=== PATIENT | female | born 1990 | race Caucasian/White ===

== ENCOUNTER 2024-07-13 15:07 | Emergency (ER) | payer MEDICAID, SELFPAY ==
[2024-07-13 15:08] VITALS: BMI 50.8
[2024-07-13 15:43] VITALS: BP 139/85; PULSE 69; RESP 18; TEMP 36.5; O2SAT 97
--- NOTE | 2024-07-13 15:50 | PD.EDRME ---
Rapid Medical Screening Exam RME Arrival date/time: 07/13/24 15:07 Chief Complaint: Urogenital-Female Time Seen by Provider: 07/13/24 15:22 Vital signs: Vital Signs Temperature 97.7 F 07/13/24 15:43 Pulse Rate 69 07/13/24 15:43 Respiratory Rate 18 07/13/24 15:43 Blood Pressure 139/85 H 07/13/24 15:43 Pulse Oximetry (%) 97 07/13/24 15:43 Oxygen Delivery Method Room Air 07/13/24 15:43 RME Narrative: Intermittent vaginal bleeding since April. Patient reports heavy bleeding x 1 week after rough intercourse, changing pads every 30 minutes for the past 3 days.
--- NOTE | 2024-07-13 15:51 | XR_ITS ---
Examination: Pelvic ultrasound, transabdominal, complete Technique: Transabdominal ultrasound of the pelvis performed using grayscale imaging Date and time of exam: July 13, 2024 1715 hrs. Indications: Pelvic cramping beginning 3 weeks ago Findings: Uterus 12.9 x 5.0 x 7.5 cm Endometrial stripe 0.70 cm No uterine mass or intrauterine gestation Right ovary 5.0 x 4.2 x 5.1 cm arterial flow, 24 x 29 x 37 mm cyst Left ovary 4.0 x 2.7 x 3.6 cm arterial flow No fluid in the cul-de-sac Impression: No uterine mass or intrauterine gestation Right ovarian cyst 24 x 29 x 37 mm
[2024-07-13 16:25] LABS: Collection Type, Urine Clean Catch
[2024-07-13 16:31] LABS: Basophils # (Auto) 0.1 Thou/mm3 (0.0-0.2); Basophils % (Auto) 1 % (0-2.5); Eosinophils # (Auto) 0.2 Thou/mm3 (0.0-0.5); Eosinophils % (Auto) 3 % (0-10); Hematocrit 39.1 % (36.0-46.0); Immature Granulocytes % (Auto) 0 % (0-0); Immature Granulocytes Auto 0.02 Thou/mm3 (0.00-0.00); Lymphocytes # (Auto) 3.1 Thou/mm3 (1.0-4.8); Lymphocytes % (Auto) 37 % (10-50); Mean Corpuscular HGB Conc 33.2 g/dl (31.0-37.0); Mean Corpuscular Hemoglobin 27.8 pg (25.0-35.0); Mean Corpuscular Volume 84 fL (80-100); Monocytes # (Auto) 0.5 Thou/mm3 (0.0-0.8); Monocytes % (Auto) 6 % (0-12); Neutrophils # (Auto) 4.5 Thou/mm3 (1.8-7.7); Neutrophils % (Auto) 54 % (37-80); Nucleated Red Blood Cell % 0 /100 WBC (0); Platelet Count 303 Thou/mm3 (140-440); RDW Standard Deviation 41.9 fL (36.4-46.3); Red Blood Count 4.67 Miln/mm3 (4.00-5.20); White Blood Count 8.4 Thou/mm3 (3.6-11.0)
[2024-07-13 16:36] LABS: Bilirubin,Urine Negative (Negative); Blood,Urine 3+ (Negative); Clarity,Urine Clear (Clear/Hazy); Color,Urine Colorless (Lt Yel-Yel); Glucose, Urine Negative (Negative); HCG Qualitative,Urine Negative; Ketones,Urine Negative (Negative); Leukocyte Esterase,Urine Negative (Negative); Nitrite,Urine Negative (Negative); PH,Urine 5.5 (5.0-7.0); Protein,Urine Negative (Neg - Trace); RBC,Urine 21 /hpf (0-3); Specific Gravity,Urine 1.006 (1.001-1.035); Squamous Epithelial Cell,Urine < 1 /hpf (0-5); Urobilinogen,Urine Negative mg/dL (0.0-1.0); WBC,Urine 1 /hpf (0-5)
[2024-07-13 16:47] LABS: Alanine Aminotransferase 50 U/L (10-49); Albumin, Serum 4.4 gm/dL (3.5-5.0); Albumin/Globulin Ratio 1.5 (1.2-2.2); Alkaline Phosphatase 55 U/L (46-116); Anion Gap 8 (7-16); Aspartate Amino Transferase 42 U/L (0-34); BUN/Creatinine Ratio 8 Ratio (12-20); Bilirubin,Total 0.2 mg/dL (0.3-1.2); Blood Urea Nitrogen < 5 mg/dL (9-23); Calcium 8.7 mg/dL (8.3-10.6); Calcium (Corrected) 8.7 mg/dL (8.5-10.1); Carbon Dioxide 26.5 mMol/L (20.0-31.0); Chloride 105 mMol/L (98-107); Creatinine (Component) 0.6 mg/dL (0.6-1.3); Estimated Creatinine Clearance 174.2 mL/min (>60); Globulin 2.9 gm/dL (2.3-3.5); Glucose 93 mg/dL (74-106); Osmolality,Calculated 274 (275-295); Potassium 3.9 mMol/L (3.4-5.1); Sodium 139 mMol/L (136-145); Total Protein 7.3 gm/dL (5.7-8.2); eGFR > 60 See Note
[2024-07-13 17:40] VITALS: BP 148/84; PULSE 74; RESP 18; TEMP 36.6; O2SAT 99
--- NOTE | 2024-07-13 18:33 | EDNOTE_ITS ---
ED Female Urogenital RME/HPI General Chief complaint: Urogenital-Female Stated complaint: VAG BLEEDING FOR 1 MONTH Time Seen by Provider: 07/13/24 15:22 Arrival date/time: 07/13/24 15:07 RME / HPI RME / HPI Narrative: DR. ROMO MAIN ED EVALUATION: 34 year old female presents to the Emergency Department with complaint of vaginal bleeding intermittently since April 2024, but worse onset 1 week after rough intercourse. She states it has been heavy bleeding and changing pads every 30 minutes. Denies any other symptoms at this time. Related Data Home Medications ?Medication ?Instructions ?Recorded ?Confirmed loratadine 10 mg tablet 10 mg PO QDAY 03/20/19 07/13/19 montelukast 10 mg tablet 10 mg PO QPM 07/13/19 07/13/19 Previous Rx's ?Medication ?Instructions ?Recorded albuterol sulfate 90 mcg/actuation 2 puff inhalation Q6H PRN 03/25/18 aerosol inhaler (ProAir HFA) shortness of breath or wheezing #18 grams albuterol sulfate 90 mcg/actuation 2 puff inhalation Q6H PRN 08/27/21 aerosol inhaler (Ventolin HFA) shortness of breath or wheezing #8.5 grams Allergies Allergy/AdvReac Type Severity Reaction Status Date / Time cat dander Allergy Severe ASTHMA,SOB, Verified 07/13/24 15:10 HIVES ibuprofen Allergy Severe LIPS SWELL Verified 07/13/24 15:10 Review of Systems Review of Systems Systems Reviewed: All systems reviewed, normal except as documented Narrative Review of Systems: GEN: No fever, no chills, no weight loss EYES: No discharge, no visual changes, no pain HEENT: No ear pain, no congestion, no sore throat PULM: No shortness of breath, no cough, no congestion CV: No chest pain, no dyspnea on exertion, no palpitations GI: No nausea, no vomiting, no diarrhea, no pain, no constipation : No frequency, no urgency and no dysuria + vaginal bleeding MUSC/SKEL: No joint pain, no back pain SKIN: No rash PSYCH: No hallucinations, no depression HEME/LYMPH: No easy bleeding or bruising tendencies NEURO: No weakness, no headache Past Medical History Past Medical History RESPIRATORY: Positive Asthma Social History SMOKING STATUS: Never smoker SUBSTANCE USE: marijuana ALCOHOL: Never ED Exam Narrative Physical exam: GENERAL APPEARANCE: alert and oriented x 4, well-developed, well-nourished, no acute distress VITALS: All vitals were reviewed and the pulse ox is 99% on room air, which is normal according to my interpretation. HEENT: Normocephalic, atraumatic; pupils equal, round, reactive to light; EOMI; mucous membranes pink, moist; oropharynx clear NECK: Supple LUNGS: CTABL; no wheezes, no rales, no rhonchi HEART: Regular rate, regular rhythm; normal S1, S2; no murmurs ABDOMEN: non distended; normal BS; soft, no tenderness, no guarding, no rebound; no masses, no organomegaly, no hernia BACK: no CVA tenderness EXTREMITIES: atraumatic; no edema NEUROLOGIC: awake; alert and oriented x4; cranial nerves II-XII grossly intact; no focal sensory or motor deficits PSYCHIATRIC: appropriate mood and affect SKIN: warm, dry, normal color; no rashes Course Quality Measures none Orders Category Date Time Status US pelvic complete Stat Exams 07/13/24 15:51 Completed CBC Stat Lab 07/13/24 16:10 Completed CMP [Comprehensive Metabolic Panel] Stat Lab 07/13/24 16:10 Completed HCG Qualitative,Urine Stat Lab 07/13/24 16:11 Completed UA [Urinalysis] Stat Lab 07/13/24 16:11 Completed Reevaluation(s) Reevaluation #1: Patient remains clinically stable throughout the emergency department visit. Re- assessment at the time of disposition demonstrates that the patient is in no acute distress. We reviewed all the results, analysis, and treatment plans. Patient is amenable to discharge. Strict return precautions were outlined. Patient was discharged in stable condition. Time: 19:40 Vital Signs Vital signs: Vital Signs Temperature 97.7 F 07/13/24 15:43 Pulse Rate 69 07/13/24 15:43 Respiratory Rate 18 07/13/24 15:43 Blood Pressure 139/85 H 07/13/24 15:43 Pulse Oximetry (%) 97 07/13/24 15:43 Oxygen Delivery Method Room Air 07/13/24 15:43 Urogenital - Female MDM Narrative MDM Narrative:: I, Supriya Gutierrez am scribing for and in the presence of Dr. Romo. Patient data External records reviewed:: [facility] previous records (Reviewed last ED visit dated 05/22/24, discharged with the following: Acute whiplash injury.) Clinical information provided by:: patient Social determinants that could affect healthcare access:: substance use (marijuana use) Patient has the following chronic illnesses:: Asthma How is presenting disease/condition affected by chronic disease/condition?: uneffected by Evaluation data The following diagnostics were reviewed and interpreted by me:: lab results and radiology exam(s) Lab and/or radiology exams considered but not ordered:: none Interpretation Summary: Procedure(s): US pelvic complete Accession Number(s): [id number] cc: Nina Wheeler MD; Armen Bauer MD; Zen Valderrama PA-C~ Examination: Pelvic ultrasound, transabdominal, complete Technique: Transabdominal ultrasound of the pelvis performed using grayscale imaging Date and time of exam: July 13, 2024 1715 hrs. Indications: Pelvic cramping beginning 3 weeks ago Findings: Uterus 12.9 x 5.0 x 7.5 cm Endometrial stripe 0.70 cm No uterine mass or intrauterine gestation Right ovary 5.0 x 4.2 x 5.1 cm arterial flow, 24 x 29 x 37 mm cyst Left ovary 4.0 x 2.7 x 3.6 cm arterial flow No fluid in the cul-de-sac Impression: No uterine mass or intrauterine gestation Right ovarian cyst 24 x 29 x 37 mm Dictated By: Armen Bauer MD Medications / Prescriptions Medications or Prescriptions considered but not ordered:: none Medication administrations:: none Consultations Consultation(s) initiated? (list below): No Diagnosis Urogenital Female Differential Diagnosis: urinary tract infection, ovarian cyst, dysmenorrhea and other (vaginal bleeding) Most likely diagnosis given after review of the tests above:: Vaginal bleeding Admission Indicated Admission indicated?: not indicated Admission Request Was there a request for admission?: No Disposition Plan Disposition Plan: Discharge Discharge Attestation Discharge Attestation: The patient and all family members were given an opportunity to ask questions and understood the discharge instructions. Discharge instructions specifically effects, indications for sooner follow up or return to the emergency department, and the expected course of current diagnosis. Patient condition: Stable Discharge Plan Plan Patient Disposition: HOME (Self Care) Prescriptions/Referrals Prescriptions/Med Rec: No Action albuterol sulfate [ProAir HFA] 90 mcg/actuation HFA aerosol inhaler 2 puff INH Q6H PRN (Reason: shortness of breath or wheezing) Qty: 18 0RF albuterol sulfate [Ventolin HFA] 90 mcg/actuation HFA aerosol inhaler 2 puff inhalation Q6H PRN (Reason: shortness of breath or wheezing) Qty: 8.5 0RF loratadine 10 mg Tablet 10 mg PO QDAY montelukast 10 mg Tablet 10 mg PO QPM Referrals: Nina Wheeler MD [Primary Care Provider] - In 1 week Problem List Clinical Impression: Vaginal bleeding Patient/Caregiver Discharge Instructions Education Materials: ED Dysfunctional Uterine Bleeding Print Language: [place] Stand Alone Forms: Paulette Award Info., Patient Portal Info Letter
--- NOTE | 2024-07-13 19:11 | PC.NURSE ---
Pt waiting on review. Provider already gave her results Pt left without paperwork
== END 2024-07-13 19:14 | disposition home or self-care (01) ==
PROVIDERS: Physician Assistant; Emergency Provider Emergency Medicine; PCP Obstetrics & Gynecology
DX: N83.201 Unspecified ovarian cyst, right side (principal)
CPT/HCPCS: 36415; 76856; 80053; 81001; 81025; 85025; 99284

== ENCOUNTER 2024-11-15 12:39 | Emergency (ER) | payer MEDICAID, SELFPAY ==
[2024-11-15 12:40] VITALS: BMI 50.5
[2024-11-15 12:50] VITALS: BP 125/84; PULSE 85; RESP 18; TEMP 36.9; O2SAT 96
--- NOTE | 2024-11-15 12:57 | XR_ITS ---
Examination: Pelvic ultrasound, transabdominal, complete Technique: Transabdominal ultrasound of the pelvis performed using grayscale imaging Date and time of exam: November 15, 2024 1343 hrs. Indications: Severe vaginal bleeding postuterine biopsy October 23, 2024 Findings: Uterus 10.8 cm endometrial stripe 0.6 cm No uterine hematoma or mass Right ovary 3.8 cm arterial flow Left ovary 4.0 cm arterial flow 21 x 17 mm cyst Impression: No uterine mass or hematoma
--- NOTE | 2024-11-15 12:57 | PD.EDRME ---
Rapid Medical Screening Exam RME Arrival date/time: 11/15/24 12:39 34-year-old female presents emergency dept today saying that she had a biopsy with Dr. Amato October 23 patient reports has been bleeding since then reports he is on Provera 60 mg daily Chief Complaint: Urogenital-Female Time Seen by Provider: 11/15/24 12:48 Vital signs: Vital Signs Temperature 98.5 F 11/15/24 12:50 Pulse Rate 85 11/15/24 12:50 Respiratory Rate 18 11/15/24 12:50 Blood Pressure 125/84 11/15/24 12:50 Pulse Oximetry (%) 96 11/15/24 12:50 Oxygen Delivery Method Room Air 11/15/24 12:50
[2024-11-15 14:37] LABS: Basophils # (Auto) 0.1 Thou/mm3 (0.0-0.2); Basophils % (Auto) 1 % (0-2.5); Eosinophils # (Auto) 0.2 Thou/mm3 (0.0-0.5); Eosinophils % (Auto) 3 % (0-10); Hematocrit 42.8 % (36.0-46.0); Hemoglobin 14.6 g/dL (12.0-16.0); Immature Granulocytes % (Auto) 0 % (0-0); Immature Granulocytes Auto 0.01 Thou/mm3 (0.00-0.00); Lymphocytes # (Auto) 1.8 Thou/mm3 (1.0-4.8); Lymphocytes % (Auto) 27 % (10-50); Mean Corpuscular HGB Conc 34.1 g/dl (31.0-37.0); Mean Corpuscular Hemoglobin 28.3 pg (25.0-35.0); Mean Corpuscular Volume 83 fL (80-100); Monocytes # (Auto) 0.5 Thou/mm3 (0.0-0.8); Monocytes % (Auto) 7 % (0-12); Neutrophils # (Auto) 4.3 Thou/mm3 (1.8-7.7); Neutrophils % (Auto) 63 % (37-80); Nucleated Red Blood Cell % 0 /100 WBC (0); Platelet Count 336 Thou/mm3 (140-440); RDW Standard Deviation 42.9 fL (36.4-46.3); Red Blood Count 5.16 Miln/mm3 (4.00-5.20); White Blood Count 6.8 Thou/mm3 (3.6-11.0)
[2024-11-15 14:41] LABS: Collection Type, Urine Clean Catch
[2024-11-15 14:48] LABS: Bilirubin,Urine Negative (Negative); Blood,Urine 3+ (Negative); Clarity,Urine Clear (Clear/Hazy); Color,Urine Lt-Yellow (Lt Yel-Yel); Culture Indicated,Urine Not Indicated; Glucose, Urine Negative (Negative); Ketones,Urine Negative (Negative); Leukocyte Esterase,Urine Negative (Negative); Nitrite,Urine Negative (Negative); PH,Urine 6.5 (5.0-7.0); Protein,Urine Trace (Neg - Trace); RBC,Urine 3 /hpf (0-3); Specific Gravity,Urine 1.014 (1.001-1.035); Squamous Epithelial Cell,Urine 1 /hpf (0-5); Urobilinogen,Urine Negative mg/dL (0.0-1.0); WBC,Urine 2 /hpf (0-5)
[2024-11-15 14:51] LABS: HCG,Qualitative Serum Negative
[2024-11-15 14:53] LABS: Partial Thromboplastin Time 28.8 Seconds (22.0-36.0); Prothrombin Time 11.4 Seconds (9.0-12.2)
[2024-11-15 14:54] LABS: Alanine Aminotransferase 15 U/L (10-49); Albumin, Serum 4.4 gm/dL (3.5-5.0); Albumin/Globulin Ratio 1.4 (1.2-2.2); Alkaline Phosphatase 52 U/L (46-116); Anion Gap 9 (7-16); Aspartate Amino Transferase 17 U/L (0-34); BUN/Creatinine Ratio 10 Ratio (12-20); Bilirubin,Total 0.8 mg/dL (0.3-1.2); Blood Urea Nitrogen 6 mg/dL (9-23); Calcium 8.9 mg/dL (8.3-10.6); Calcium (Corrected) 8.9 mg/dL (8.5-10.1); Carbon Dioxide 23.4 mMol/L (20.0-31.0); Chloride 105 mMol/L (98-107); Creatinine (Component) 0.6 mg/dL (0.6-1.3); Estimated Creatinine Clearance 173.4 mL/min (>60); Globulin 3.2 gm/dL (2.3-3.5); Glucose 87 mg/dL (74-106); Osmolality,Calculated 270 (275-295); Potassium 3.6 mMol/L (3.4-5.1); Sodium 137 mMol/L (136-145); Total Protein 7.6 gm/dL (5.7-8.2); eGFR > 60 See Note
[2024-11-15 15:32] VITALS: BP 125/61; PULSE 90; RESP 18; TEMP 36.7; O2SAT 98
--- NOTE | 2024-11-15 16:22 | EDNOTE_ITS ---
ED Female Urogenital RME/HPI General Chief complaint: Urogenital-Female Stated complaint: VAGINAL BLEEDING SINCE 10/23/24 AFTER BIOPSY Time Seen by Provider: 11/15/24 12:48 Arrival date/time: 11/15/24 12:39 RME / HPI RME / HPI Narrative: 34-year-old female patient came in for evaluation regarding vaginal bleeding. Patient's been having vaginal bleeding that comes and goes for several months, currently followed by Dr. Amato, she had a biopsy done last June 25, and since then has been having on and off bleeding some days are mild some days are heavy. Patient denies any other complaints. Supposed to follow-up with Dr. Amato today for biopsy results however Dr. Amato cancel her scheduled. Instead come to us for further evaluation. Patient is currently taking Provera 60 mg p.o. daily. Related Data Home Medications ?Medication ?Instructions ?Recorded ?Confirmed loratadine 10 mg tablet 10 mg PO QDAY 03/20/1907/13 montelukast 10 mg tablet 10 mg PO QPM 07/13/19 Previous Rx's ?Medication ?Instructions ?Recorded albuterol sulfate 90 mcg/actuation 2 puff inhalation Q 6H PRN 03/25/18 aerosol inhaler (ProAir HFA) shortness of breath or wh eezing #18 grams albuterol sulfate 90 mcg/actuation 2 puff inhalation Q 6H PRN 08/27/21 aerosol inhaler (Ventolin HFA) shortness of breath or wheezing #8.5 grams tranexamic acid 650 mg tablet 1,300 mg (2 x 650 mg) PO Q8H #15 11/15/24 tabs Allergies Allergy/AdvReac Type Severity Reaction Status Date / Time cat dander Allergy Severe ASTHMA,SOB, Verified 11/15/24 12:42 HIVES ibuprofen Allergy Severe LIPS SWELL Verified 11/15/24 12:42 Review of Systems Review of Systems Narrative Review of Systems: Review of system reviewed and within normal limits except mentioned in HPI ED Exam Narrative Physical exam: VITAL SIGNS: Reviewed. GENERAL APPEARANCE: Alert and interactive, follows commands, no acute distress, HEAD AND FACE: Non-traumatic. ENT: PERRL, pink conjunctivitis, Mucous membrane moist. NECK: Supple, nontender, no nuchal rigidity. MUSCULOSKELETAL: l full range of motion. EXTREMITIES: Nontender, full range of motion. SKIN: Color pink, dry, LYMPHATICS: Deferred. Course Quality Measures none Orders Category Date Time Status US pelvic complete Stat Exams 11/15/24 12:57 Completed CBC Stat Lab 11/15/24 13:00 Completed Comprehensive Metabolic Panel Stat Lab 11/15/24 13:00 Completed HCG,Qualitative Serum Stat Lab 11/15/24 13:00 Completed Partial Thromboplastin Time Stat Lab 11/15/24 13:00 Completed Prothrombin Time with INR Stat Lab 11/15/24 13:00 Completed UA, C/S IF [Urinalysis, C/S if Indicated] Stat Lab 11/15/24 14:25 Completed Vital Signs Vital signs: Vital Signs Temperature 98.5 F 11/15/24 12:50 Pulse Rate 85 11/15/24 12:50 Respiratory Rate 18 11/15/24 12:50 Blood Pressure 125/84 11/15/24 12:50 Pulse Oximetry (%) 96 11/15/24 12:50 Oxygen Delivery Method Room Air 11/15/24 12:50 Urogenital - Female MDM Narrative MDM Narrative:: 34-year-old female patient came in for evaluation regarding vaginal bleeding. Patient's been having vaginal bleeding that comes and goes for several months, currently followed by Dr. Amato, she had a biopsy done last June 25, and since then has been having on and off bleeding some days are mild some days are heavy. Patient denies any other complaints. Supposed to follow-up with Dr. Amato today for biopsy results however Dr. Amato cancel her scheduled. Instead come to us for further evaluation. Patient is currently taking Provera 60 mg p.o. daily. On my initial evaluation patient is very upset to start with, I introduced myself, and asked her questions. After I answered her questions I told her about her laboratory results including normal ultrasound and normal CBC with no sign of anemia. Patient is demanding if I can call and asked the [employer] on-call to come down and talk to her. I told her I will try my best but this is not the super emergency that the [employer] will come down and talk to you. I told her that your vital signs are normal you are not anemic and ultrasound is normal. I promised her that I will talk to the [employer] myself on the phone. She got more upset and shouting at me and demanding to leave. I walked out and was able to talk to Dr. Calderon, [employer] on-call, who told me that patient will be advised to continue taking the Provera, and will prescribe her TXA for outpatient management. Patient was also advised to follow-up with Dr. Amato this coming Sunday. Spoke with the charge nurse regarding this incidence. I never raised my voice instead she keeps shouting at me. Patient data External records reviewed:: None Clinical information provided by:: patient Social determinants that could affect healthcare access:: none Patient has the following chronic illnesses:: None How is presenting disease/condition affected by chronic disease/condition?: no chronic disease Evaluation data The following diagnostics were reviewed and interpreted by me:: lab results and radiology exam(s) Lab and/or radiology exams considered but not ordered:: None Interpretation Summary: Patient CBC showed no abnormality noted hematocrit of 42.8 hemoglobin of 14.6 platelets normal CMP unremarkable urinalysis positive hematuria otherwise unremarkable ultrasound of the pelvis showed no abnormality noted. She is not Medications / Prescriptions Medications or Prescriptions considered but not ordered:: None Medication administrations:: None Consultations Consultation(s) initiated? (list below): No Diagnosis Urogenital Female Differential Diagnosis: dysmenorrhea and other (Dysfunctional uterine bleeding, menometrorrhagia) Most likely diagnosis given after review of the tests above:: Dysfunctional uterine bleeding Admission Indicated Admission indicated?: not indicated Explain why admission is indicated or not indicated:: None Admission Request Was there a request for admission?: No Disposition Plan Disposition Plan: Discharge Discharge Attestation Discharge Attestation: Patient condition: Stable Discharge Plan Plan Patient Disposition: HOME (Self Care) Disposition Comment: stable Prescriptions/Referrals Prescriptions/Med Rec: New tranexamic acid 650 mg tablet 1,300 mg PO Q8H Qty: 15 0RF No Action albuterol sulfate [ProAir HFA] 90 mcg/actuation HFA aerosol inhaler 2 puff INH Q6H PRN (Reason: shortness of breath or wheezing) Qty: 18 0RF albuterol sulfate [Ventolin HFA] 90 mcg/actuation HFA aerosol inhaler 2 puff inhalation Q6H PRN (Reason: shortness of breath or wheezing) Qty: 8.5 0RF loratadine 10 mg Tablet 10 mg PO QDAY montelukast 10 mg Tablet 10 mg PO QPM Referrals: No Primary/Family,Physician [Primary Care Provider] - In 1 week Problem List Clinical Impression: DUB (dysfunctional uterine bleeding) Patient/Caregiver Discharge Instructions Discharge Activity: activity as tolerated Education Materials: ED Dysfunctional Uterine Bleeding Additional Instructions: Thank you for the opportunity for serving you today. You are stable for discharged . You are advised to: Follow-up with Dr Amato this Sunday Return to ED for worsening of symptoms Increase oral fluids Take medication as prescribed Print Language: Swedish Stand Alone Forms: Paulette Award Info., Patient Portal Info Letter
== END 2024-11-15 16:41 | disposition home or self-care (01) ==
PROVIDERS: Nurse Practitioner Primary Care; Emergency Provider Emergency Medicine
DX: N93.8 Other specified abnormal uterine and vaginal bleeding (principal)
CPT/HCPCS: 36415; 76856; 80053; 81001; 84703; 85025; 85610; 85730; 99284